=== PATIENT | female | born 2000 | race American Indian/Alaskan Native ===

== ENCOUNTER 2020-08-11 07:22 | Emergency (ER) | payer SELFPAY ==
[2020-08-11] MEDS ORDERED: ACETAMINOPHEN 325 MG TAB ONE (07:48)
[2020-08-11] MEDS ORDERED: ACETAMINOPHEN 325 MG TAB PO ONE (07:53)
[2020-08-11 07:56] VITALS: BP 118/56
--- NOTE | 2020-08-11 09:14 | Emergency Department Report ---
Minor Respiratory - HPI Chief Complaint: Sore Throat Stated Complaint: SORE THROAT/CHILLS/STOMACH ACHE Time Seen by Provider: 08/11/20 08:53 Duration: 1 Day Pain Location: Throat Severity: mild Minor Respiratory: Yes Rhinorrhea, Yes Sore Throat, Yes Able to Tolerate Fluids, Yes Fever, No Ear Pain, No Cough, No Sick Contacts, No Hemoptysis, No Chest Pain, No Shortness of Breath Other History: fever, sore throat, uri sx since yesterday. no cough, vomiting, diarrhea ED Review of Systems ROS: Stated complaint: SORE THROAT/CHILLS/STOMACH ACHE Other details as noted in HPI Comment: All other systems reviewed and negative Constitutional: see HPI ENT: as per HPI ED Past Medical Hx - Past Medical History Previous Medical History?: No - Surgical History Past Surgical History?: No - Medications Home Medications: Home Medications Medication Instructions Recorded Confirmed Last Taken Type Prednisone [predniSONE 10 mg 10 mg PO .TAPER #1 tab.ds.pk 08/11/20 Unknown Rx (6-Day Pack, 21 Tabs)] Minor Respiratory Exam - Exam General: Vital signs noted. No distress. Alert and acting appropriately. HEENT: Yes Pharyngeal Erythema (tonsils 2+., no abscess, no trismus ), Yes Moist Mucous Membranes, Yes Rhinorrhea, No Pharyngeal Exudates, No Conjuctival Injection, No Frontal Tenderness, No Maxillary Tenderness Ear: Neither TM Bulge, Neither TM Erythema, Neither EAC Pain, Neither EAC Discharge Neck: Yes Adenopathy, Yes Supple Lungs: Yes Good Air Exchange, No Wheezes, No Ronchi, No Stridor, No Cough, No Labored Respirations, No Retractions, No Use of Accessory Muscles, No Other Abnormal Lung Sounds Heart: Yes Regular, No Murmur Abdomen: Yes Normal Bowel Sounds, No Tenderness, No Peritoneal Signs Skin: No Rash, No Edema Neurologic: Alert and oriented, no deficits. Musculoskeletal: Unremarkable. ED Course Vital Signs 08/11/20 07:48 Temperature 101.7 F H Pulse Rate 124 H Respiratory 18 Rate Blood Pressure 118/56 O2 Sat by Pulse 95 Oximetry ED Medical Decision Making - Medical Decision Making Patient presented with flulike symptoms primarily sore throat. 2+ tonsils on exam, no abscess, no trismus. Strep and flu were checked and are both negative. Confirmatory throat culture sent. Recommend supportive care and PCP follow-up. - Differential Diagnosis Viral syndrome, strep, COVID-19 Critical care attestation.: If time is entered above; I have spent that time in minutes in the direct care of this critically ill patient, excluding procedure time. ED Disposition Clinical Impression: Viral syndrome, Tonsillitis Disposition: TO HOME OR SELFCARE Is pt being admited?: No Condition: Good Instructions: Viral Respiratory Infection, [id number], Tonsillitis Prescriptions: Prednisone [predniSONE 10 mg (6-Day Pack, 21 Tabs)] 10 mg PO .TAPER #1 tab.ds.pk Referrals: PRIMARY CARE, [Primary Care Provider] - 3-5 Days Time of Disposition: 09:54
== END 2020-08-11 10:30 | disposition home or self-care (01) ==
LOC: ED 07:22
DX: B34.9 Viral infection, unspecified (principal); J03.90 Acute tonsillitis, unspecified; Z79.899 Other long term (current) drug therapy; Z88.8 Allergy status to other drugs, medicaments and biological substances
CPT/HCPCS: 87116; 87400; 87430